=== PATIENT | female | born 1980 | race Two or more races ===

== ENCOUNTER 2021-12-09 12:02 | Emergency (ER) | payer MEDICAID ==
[~2021-12-09] VITALS: Ht 165.1 cm; Wt 77.3 kg
[2021-12-09 12:06] VITALS: BP 127/83
== END 2021-12-09 14:06 | disposition home or self-care (01) ==
LOC: ER 12:03
DX: J06.9 Acute upper respiratory infection, unspecified (principal); Z20.822 Contact with and (suspected) exposure to COVID-19; F17.200 Nicotine dependence, unspecified, uncomplicated; Z88.5 Allergy status to narcotic agent
CPT/HCPCS: 87811; 99283

== ENCOUNTER 2024-07-07 17:14 | Emergency (ER) | payer MEDICAID ==
[~2024-07-07] VITALS: Ht 165.1 cm; Wt 84.6 kg
[2024-07-07 17:18] VITALS: BP 134/84; PULSE 84; O2SAT 98
[2024-07-07 18:27] VITALS: RESP 16
[2024-07-07] MEDS: ketorolac trometh 15mg/ml vial 15 MG/ML ML IM ONE (18:27)
[2024-07-07 18:29] VITALS: TEMP 98.7
== END 2024-07-07 18:32 | disposition home or self-care (01) ==
LOC: ER 17:15
DX: M25.532 Pain in left wrist (principal); Z88.5 Allergy status to narcotic agent; W06.XXXA Fall from bed, initial encounter; Y93.89 Activity, other specified; Y92.89 Other specified places as the place of occurrence of the external cause; Y99.8 Other external cause status
CPT/HCPCS: 73110; 96372; 99283; J1885